=== PATIENT | male | born 1945 | race Caucasian/White ===

== ENCOUNTER 2019-08-15 18:09 | Inpatient (IN) | payer OTHER, MEDICARE ==
[~2019-08-15] VITALS: Ht 182.9 cm; Wt 60.8 kg
[2019-08-15] MEDS ORDERED: ALBUTEROL/IPRATROPIUM 2.5MG/0.5MG, 3 ML NPPB ONE (18:30)
[2019-08-15] MEDS ORDERED: ACETAMINOPHEN 325 MG TABLET PO ONE (18:30)
[2019-08-15] MEDS ORDERED: SODIUM CHLORIDE FLUSH 10ML SYR IVF ONE (18:30)
[2019-08-15] MEDS ORDERED: ALBUTEROL/IPRATROPIUM 2.5MG/0.5MG, 3 ML ONE (18:56)
[2019-08-15] MEDS ORDERED: SODIUM CHLORIDE 0.9% 1,000ML IVBOLUS ONE ×3 (19:00→23:00)
[2019-08-15] MEDS ORDERED: CEFTRIAXONE PMX 1GM/50ML 50 ML IV ONE (19:00)
[2019-08-15 19:05] LABS: INTERNATIONAL NORMALIZED RATIO 1.05 (0.93-1.1); PROTHROMBIN TIME 11.1 Seconds (9.6-11.5)
[2019-08-15 19:05] LABS: RAPID INFLUENZA A Negative (Negative); RAPID INFLUENZA B Negative (Negative)
[2019-08-15 19:07] LABS: ALANINE AMINOTRANSFERASE 29 U/L (12-78); ALBUMIN 3.3 g/dL (3.4-5.0); ANION GAP 5 mmol/L (5-15); CHLORIDE 104 mmol/L (98-107); CREATININE 1.22 mg/dL (0.7-1.3); MEAN CORPUSCULAR HEMOGLOBIN 31.6 pg (27.5-34.5); MEAN CORPUSCULAR VOLUME 95.7 fL (81-97); MEAN PLATELET VOLUME 6.9 fL (7.4-10.4); PLATELET COUNT 180 x10^3/uL (130-400); RED BLOOD COUNT 4.91 x10^6/uL (4.38-5.82)
[2019-08-15] MEDS ORDERED: CEFTRIAXONE PMX 1GM/50ML 50 ML ONE (19:07)
[2019-08-15] MEDS ORDERED: ACETAMINOPHEN 325 MG TABLET ONE (19:07)
[2019-08-15 19:10] LABS: ALKALINE PHOSPHATASE 105 U/L (45-117); TOTAL PROTEIN 7.2 g/dL (6.4-8.2)
--- NOTE | 2019-08-15 19:10 | NUR ---
TYLENOL GIVEN PER EMAR. NS BOLUS STARTED. IV SITE PATENT.
[2019-08-15 19:27] LABS: MD YES
[2019-08-15 19:29] LABS: <PLATELET ESTIMATE> ADEQUATE; <PLT MORPHOLOGY> NORMAL PLT MORPH; <RBC MORPHOLOGY> NORMAL; BAND#(MANUAL) 1.28 x10^3/uL; BANDS%(MANUAL) 9 % (0-7); LYMPH#(MANUAL) 0.28 x10^3/uL (1-3.4); LYMPHS% (MANUAL) 2 % (22-44); MONOS#(MANUAL) 0.85 x10^3/uL (0.3-2.7); MONOS% (MANUAL) 6 % (2-9); SEG#(MANUAL) 11.79 x10^3/uL (1.8-6.8); SEGS% (MANUAL) 83 % (42-75)
--- NOTE | 2019-08-15 19:33 | NUR ---
BLOOD CX BAND ON PT'S WRIST. ROCEPHIN HUNG, INFUSING AT 100ML/HR VIA PUMP. NS BOLUS INFUSING. IV SITE PATENT. PT RESTING QUIETLY ON GURNEY. BROTHER & [id number] IN ROOM.
--- NOTE | 2019-08-15 19:35 | NUR ---
BROTHER: OANH LYSSA ( [birth year]), HOME [phone], CELL [phone].
[2019-08-15] MEDS ORDERED: MELOXICAM (19:41)
[2019-08-15] MEDS ORDERED: STATIN (19:41)
[2019-08-15] MEDS ORDERED: PRILOSEC (19:41)
[2019-08-15] MEDS ORDERED: IRON (19:41)
[2019-08-15] MEDS ORDERED: FLUT1DIS5 IH (19:41)
[2019-08-15] MEDS ORDERED: TRAM50TA2 PO (19:41)
[2019-08-15] MEDS ORDERED: ALBUTEROL INH (19:41)
[2019-08-15] MEDS ORDERED: TIOT18CA INH (19:41)
[2019-08-15] MEDS ORDERED: [UNRECOGNIZED DRUG - REMARK] (19:41)
[2019-08-15] MEDS ORDERED: ASPI-496 PO (19:41)
--- NOTE | 2019-08-15 19:54 | NUR ---
OXI-MASK UNCOMFORTABLE TO PT. CHANGED FOR NASAL CANNULA AT 4L. O2 SAT 89/90%. O2 INCREASED TO 6L.
--- NOTE | 2019-08-15 19:56 | NUR ---
DR KUHN BS FOR EXAM. PT REPORTS FEVER STARTED LAST NOC. REPORTS HX BRONCHIOLECTESIS. PT TO BE ADMITTED.
--- NOTE | 2019-08-15 20:40 | NUR ---
PT DENIES URGE TO VOID, AT THIS TIME. WATER PROVIDED. MONITORING CONTINUING. FAMILY IN ROOM. CALL LIGHT W/IN REACH.
--- NOTE | 2019-08-15 20:50 | NUR ---
2ND LITER NS HUNG, IV SITE PATENT. PT DENIES URGE TO VOID AT THIS TIME.
[2019-08-15] MEDS ORDERED: AZITHROMYCIN 500 MG in SODIUM CHLORIDE 0.9% 250 ML IV ONE (21:00)
--- NOTE | 2019-08-15 21:23 | NUR ---
ZITHROMAX JARETH, INFUSING AT 250ML/HR VIA PUMP. NS BOLUS #2 INFUSING. IV SITE PATENT.
--- NOTE | 2019-08-15 21:50 | NUR ---
NO IMPROVEMENT IN BP SP 2L NS. PT TRANSFERED TO T1 FOR CENTRAL LINE/VASOPRESSORS. THIS RN ASSUMING CARE OF PT. PT SITTING UP IN GURNEY, AWAKE/ALERT. RESPIRATIONS EVEN/UNLABORED, SPEAKING IN FULL SENTENCES W EASE. DENIES SOB/CP/DIZZINESS/WEAKNESS. NO UO SINCE ARRIVAL TO ED. PT REPORTEDLY DROVE TO [place] TODAY TO VISIT BROTHER, DENIES UNILATERAL LEG PAIN/SWELLING. REPORTS PRODUCTIVE COUGH WITH BROWN SPUTUM X YESTERDAY, WORSENING TODAY. SPO2 >90% ON 2.5L BY NC. RR 15, DEEP/EVEN RESPIRATIONS. ROOM PREPARED FOR CENTRAL LINE PLACEMENT. VASOPRESSOR ORDERED FROM PHARMACY. BP/SPO2/ECG MONITORING IN PLACE. NSR ON MONITOR.
--- NOTE | 2019-08-15 21:51 | NUR ---
PT TRANSFERRED TO TR01 PER FIDENCIO. JUANA AVALOS TO ASSUME CARE.
--- NOTE | 2019-08-15 22:27 | NUR ---
THIRD LITER NS HUNG PER ERP. CONSENT SIGNED FOR CENTRAL LINE PLACEMENT. ERP AT BEDSIDE TO PLACE.
[2019-08-15] MEDS ORDERED: NOREPINEPHRINE 8 MG in SODIUM CHLORIDE 0.9% 242 ML IV PRN (22:30)
[2019-08-15] MEDS ORDERED: ONDANSETRON 2MG/ML, 2ML ONE (22:35)
[2019-08-15] MEDS ORDERED: MORPHINE SULFATE 4 MG/ML, 1ML ONE (22:35)
--- NOTE | 2019-08-15 22:57 | NUR ---
CENTRAL LINE PLACEMENT COMPLETE. PT TOLERATED WELL. XRAY CONFIRMATION COMPLETED. AWAITING READ. VASOPRESSOR STARTED IN PIV, OKAY PER ERP. PT WITH STRONG PRODUCTIVE COUGH, PRODUCED DARK GREEN/BROWN SPUTUM. LLL WITH MILD WHEEZE ON EXHILATION. LUNGS OTHERWISE CLEAR. NO EVIDENCE OF PULMONARY EDEMA. FAMILY AT BEDSIDE. AWAITING ADMIT
[2019-08-15] MEDS ORDERED: morphine SULFATE 10 MG/ML, 1ML IVPush ONE (23:00)
[2019-08-15] MEDS ORDERED: ONDANSETRON 2MG/ML, 2ML IVPush ONE (23:00)
--- NOTE | 2019-08-15 23:17 | NUR ---
Negin rn: Central line okayed via ERMD. Norepinephrine switched to central line at this time. Pt maintaining pressures on rate set at this time. BARRIE.
[2019-08-15] MEDS ORDERED: HYDROCORTISONE 100 MG INJ. IVPush SCH (23:30)
[2019-08-16] MEDS ORDERED: NOREPINEPHRINE 8 MG in SODIUM CHLORIDE 0.9% 242 ML IV PRN
[2019-08-16] MEDS ORDERED: morphine SULFATE 10 MG/ML, 1ML IVPush PRN
[2019-08-16] MEDS ORDERED: ONDANSETRON 2MG/ML, 2ML IVPush PRN
[2019-08-16] MEDS ORDERED: CEFTRIAXONE PMX 1GM/50ML 50 ML IV SCH
[2019-08-16] MEDS ORDERED: HYDROCORTISONE 100 MG INJ. ONE (00:20)
[2019-08-16 01:20] VITALS: BP 105/51
[2019-08-16 02:00] VITALS: BP 105/53
[2019-08-16] MEDS: LACTATED RINGERS 1,000 ML IV SCH ×2 (02:06→10:05)
[2019-08-16] MEDS: ENOXAPARIN 40 MG/0.4 ML SQ SCH (02:06)
[2019-08-16] MEDS ORDERED: ALBUTEROL SULFATE 2.5 MG/3 ML NPPB PRN (03:30)
[2019-08-16 04:00] VITALS: BP 116/54
[2019-08-16 04:33] LABS: ANION GAP 5 mmol/L (5-15); CALCIUM 8.2 mg/dL (8.5-10.1); CHLORIDE 112 mmol/L (98-107); CREATININE 0.74 mg/dL (0.7-1.3)
[2019-08-16 04:38] LABS: MEAN CORPUSCULAR HEMOGLOBIN 31.3 pg (27.5-34.5); MEAN CORPUSCULAR HGB CONC 33.4 g/dL (33.2-36.2); MEAN CORPUSCULAR VOLUME 93.9 fL (81-97); MEAN PLATELET VOLUME 6.7 fL (7.4-10.4); PLATELET COUNT 159 x10^3/uL (130-400); RED BLOOD COUNT 4.24 x10^6/uL (4.38-5.82); RED CELL DISTRIBUTION WIDTH 14.7 % (9.4-14.8)
[2019-08-16] MEDS: ACETAMINOPHEN 325 MG TABLET PO PRN ×2 (04:44→10:02)
[2019-08-16] MEDS: PIPERACILLIN/TAZO/PMX 3.375GM 50 ML IV SCH ×4 (04:47→23:30)
[2019-08-16 05:25] LABS: MICROSCOPIC INDICATED
[2019-08-16 05:28] LABS: CULTURE INDICATED? NO
[2019-08-16 05:58] LABS: BASOPHILS # (AUTO) 0.01 x10^3/uL (0-0.1); BASOPHILS % (AUTO) 0 % (0-1); EOSINOPHILS % (AUTO) 0 % (1-7); LYMPHOCYTES # (AUTO) 0.25 x10^3/uL (1-3.4); LYMPHOCYTES % (AUTO) 2 % (22-44); MD SCAN; MONOCYTES # (AUTO) 0.27 x10^3/uL (0.2-0.8); MONOCYTES % (AUTO) 2 % (2-9); NEUTROPHILS # (AUTO) 11.59 x10^3/uL (1.8-6.8); NEUTROPHILS % (AUTO) 96 % (42-75)
[2019-08-16] MEDS ORDERED: ATOR-2 PO (08:06)
[2019-08-16] MEDS ORDERED: METO25TA35 PO (08:06)
[2019-08-16] MEDS ORDERED: GABA-827 PO (08:06)
[2019-08-16] MEDS: SENNA/DOCUSATE TABLET PO SCH (10:02)
[2019-08-16 15:36] VITALS: BP 124/67
[2019-08-16 17:32] VITALS: BP 133/69
[2019-08-16] MEDS: GABAPENTIN 400 MG CAPSULE PO SCH ×2 (17:45→19:58)
[2019-08-16 19:50] VITALS: BP 122/67
[2019-08-16] MEDS: ATORVASTATIN 80 MG TABLET PO SCH (19:58)
[2019-08-16] MEDS: BUDESONIDE 0.5 MG/2 ML INHA NPPB SCH ×2 (21:00→21:45)
[2019-08-16] MEDS: ALBUTEROL/IPRATROPIUM 2.5MG/0.5MG, 3 ML NPPB SCH ×2 (21:00→21:45)
[2019-08-16] MEDS: AZITHROMYCIN 500 MG in SODIUM CHLORIDE 0.9% 250 ML IV SCH (22:23)
[2019-08-17 00:38] VITALS: BP 116/63
[2019-08-17] MEDS: ENOXAPARIN 40 MG/0.4 ML SQ SCH ×2 (01:24→14:34)
[2019-08-17] MEDS: LACTATED RINGERS 1,000 ML IV SCH ×3 (01:24→23:27)
[2019-08-17] MEDS: PIPERACILLIN/TAZO/PMX 3.375GM 50 ML IV SCH ×4 (05:00→23:27)
[2019-08-17 07:48] VITALS: BP 111/58
[2019-08-17] MEDS: GABAPENTIN 400 MG CAPSULE PO SCH ×3 (09:29→22:08)
[2019-08-17] MEDS: ASPIRIN 81 MG TABLET CHEW PO SCH (09:30)
[2019-08-17] MEDS: SENNA/DOCUSATE TABLET PO SCH (09:30)
[2019-08-17] MEDS: METOPROLOL TARTRATE 25 MG TAB PO SCH (09:30)
[2019-08-17 10:24] LABS: CHLORIDE 110 mmol/L (98-107); CREATININE 0.73 mg/dL (0.7-1.3)
[2019-08-17 10:37] LABS: ANION GAP 4 mmol/L (5-15)
[2019-08-17 10:45] LABS: MEAN CORPUSCULAR HEMOGLOBIN 31.4 pg (27.5-34.5); MEAN CORPUSCULAR HGB CONC 33.2 g/dL (33.2-36.2); MEAN CORPUSCULAR VOLUME 94.6 fL (81-97); MEAN PLATELET VOLUME 6.8 fL (7.4-10.4); PLATELET COUNT 131 x10^3/uL (130-400); RED BLOOD COUNT 4.17 x10^6/uL (4.38-5.82); RED CELL DISTRIBUTION WIDTH 14.8 % (9.4-14.8)
[2019-08-17] MEDS ORDERED: POTASSIUM CHLORIDE 20 MEQ in SODIUM CHLORIDE 0.9% 250 ML IV ONE (11:00)
[2019-08-17 11:14] LABS: BASOPHILS # (AUTO) 0.02 x10^3/uL (0-0.1); BASOPHILS % (AUTO) 0 % (0-1); EOSINOPHILS # (AUTO) 0.02 x10^3/uL (0-0.4); EOSINOPHILS % (AUTO) 0 % (1-7); LYMPHOCYTES # (AUTO) 0.36 x10^3/uL (1-3.4); LYMPHOCYTES % (AUTO) 5 % (22-44); MD SCAN; MONOCYTES # (AUTO) 0.45 x10^3/uL (0.2-0.8); MONOCYTES % (AUTO) 6 % (2-9); NEUTROPHILS # (AUTO) 7.07 x10^3/uL (1.8-6.8); NEUTROPHILS % (AUTO) 89 % (42-75)
[2019-08-17 12:36] VITALS: BP 106/62
[2019-08-17] MEDS: BUDESONIDE 0.5 MG/2 ML INHA NPPB SCH ×2 (19:22→19:28)
[2019-08-17] MEDS: ALBUTEROL/IPRATROPIUM 2.5MG/0.5MG, 3 ML NPPB SCH ×2 (19:22→19:28)
[2019-08-17 19:51] VITALS: BP 122/56
[2019-08-17] MEDS: AZITHROMYCIN 500 MG in SODIUM CHLORIDE 0.9% 250 ML IV SCH (22:08)
[2019-08-17] MEDS: ATORVASTATIN 80 MG TABLET PO SCH (22:08)
[2019-08-18 01:45] VITALS: BP 111/65
[2019-08-18 05:38] LABS: ANION GAP 4 mmol/L (5-15); CALCIUM 8.1 mg/dL (8.5-10.1); CHLORIDE 110 mmol/L (98-107)
[2019-08-18 05:39] LABS: CREATININE 0.65 mg/dL (0.7-1.3)
[2019-08-18] MEDS: PIPERACILLIN/TAZO/PMX 3.375GM 50 ML IV SCH ×4 (05:41→23:44)
[2019-08-18 07:50] VITALS: BP 143/68
[2019-08-18] MEDS: ALBUTEROL/IPRATROPIUM 2.5MG/0.5MG, 3 ML NPPB SCH ×3 (08:10→16:15)
[2019-08-18] MEDS ORDERED: PROPOFOL 10 MG/ML, 20ML ONE (08:26)
[2019-08-18] MEDS ORDERED: SUCCINYLCHOLINE 20 MG/ML, 10ML ONE (08:26)
[2019-08-18] MEDS ORDERED: hydrALAzine 20 MG/ML, 1ML IV PRN (09:30)
[2019-08-18] MEDS ORDERED: ALBUTEROL SULFATE 2.5 MG/3 ML NPPB PRN (09:30)
[2019-08-18] MEDS ORDERED: ACETAMINOPHEN 325 MG TABLET PO PRN (09:30)
[2019-08-18] MEDS ORDERED: DIAZEPAM 5 MG/ML, 2ML IVPush PRN (09:30)
[2019-08-18] MEDS ORDERED: HYDROmorphone 2 MG/ML, 1ML IVPush PRN (09:30)
[2019-08-18] MEDS ORDERED: FENTANYL PF 100 MCG/2ML IV PRN (09:30)
[2019-08-18] MEDS ORDERED: PROMETHAZINE 25 MG/ML, 1ML IV PRN (09:30)
[2019-08-18] MEDS ORDERED: OXYcodone 5 MG/5 ML ORAL.SOL UDC PO PRN (09:30)
[2019-08-18] MEDS ORDERED: MEPERIDINE/PF 25MG/0.5ML IVPush PRN (09:30)
[2019-08-18] MEDS ORDERED: KETOROLAC 30 MG/1 ML IV PRN (09:30)
[2019-08-18] MEDS ORDERED: LABETALOL 5MG/ML, 20ML IV PRN (09:30)
[2019-08-18] MEDS: BUDESONIDE 0.5 MG/2 ML INHA NPPB SCH (10:10)
[2019-08-18] MEDS: ASPIRIN 81 MG TABLET CHEW PO SCH (10:25)
[2019-08-18] MEDS: GABAPENTIN 400 MG CAPSULE PO SCH ×3 (10:25→22:07)
[2019-08-18] MEDS: METOPROLOL TARTRATE 25 MG TAB PO SCH (10:25)
[2019-08-18] MEDS: SENNA/DOCUSATE TABLET PO SCH (10:26)
[2019-08-18] MEDS: LACTATED RINGERS 1,000 ML IV SCH ×2 (13:18→23:44)
[2019-08-18 13:24] VITALS: BP 138/76
[2019-08-18 19:26] VITALS: BP 143/68
[2019-08-18] MEDS: AZITHROMYCIN 500 MG in SODIUM CHLORIDE 0.9% 250 ML IV SCH (22:07)
[2019-08-18] MEDS: ATORVASTATIN 80 MG TABLET PO SCH (22:07)
[2019-08-19 01:04] VITALS: BP 134/62
[2019-08-19] MEDS: PIPERACILLIN/TAZO/PMX 3.375GM 50 ML IV SCH ×3 (05:18→17:27)
[2019-08-19] MEDS: ENOXAPARIN 40 MG/0.4 ML SQ SCH (05:18)
[2019-08-19 06:48] VITALS: BP 132/73
[2019-08-19] MEDS: METOPROLOL TARTRATE 25 MG TAB PO SCH (07:54)
[2019-08-19] MEDS: LACTATED RINGERS 1,000 ML IV SCH ×2 (07:54→19:33)
[2019-08-19] MEDS: ASPIRIN 81 MG TABLET CHEW PO SCH (07:55)
[2019-08-19] MEDS: GABAPENTIN 400 MG CAPSULE PO SCH ×3 (07:55→21:56)
[2019-08-19] MEDS: SENNA/DOCUSATE TABLET PO SCH (07:55)
[2019-08-19 13:34] VITALS: BP 149/70
[2019-08-19] MEDS: ACETAMINOPHEN 325 MG TABLET PO PRN (17:27)
[2019-08-19] MEDS ORDERED: AZEL137S4 NAS (18:12)
[2019-08-19 19:38] VITALS: BP 128/69
[2019-08-19] MEDS: AZITHROMYCIN 500 MG in SODIUM CHLORIDE 0.9% 250 ML IV SCH (21:56)
[2019-08-19] MEDS: ATORVASTATIN 80 MG TABLET PO SCH (21:57)
[2019-08-20 02:26] VITALS: BP 126/73
[2019-08-20] MEDS: PIPERACILLIN/TAZO/PMX 3.375GM 50 ML IV SCH ×5 (05:10→22:58)
[2019-08-20] MEDS: LACTATED RINGERS 1,000 ML IV SCH (05:10)
[2019-08-20] MEDS: ENOXAPARIN 40 MG/0.4 ML SQ SCH (05:11)
[2019-08-20 06:07] LABS: ANION GAP 5 mmol/L (5-15); CHLORIDE 105 mmol/L (98-107); CREATININE 0.64 mg/dL (0.7-1.3)
[2019-08-20 06:08] LABS: BASOPHILS # (AUTO) 0.02 x10^3/uL (0-0.1); BASOPHILS % (AUTO) 1 % (0-1); EOSINOPHILS # (AUTO) 0.18 x10^3/uL (0-0.4); EOSINOPHILS % (AUTO) 4 % (1-7); LYMPHOCYTES # (AUTO) 0.69 x10^3/uL (1-3.4); LYMPHOCYTES % (AUTO) 16 % (22-44); MD NO; MEAN CORPUSCULAR HEMOGLOBIN 31.6 pg (27.5-34.5); MEAN CORPUSCULAR HGB CONC 33.8 g/dL (33.2-36.2); MEAN CORPUSCULAR VOLUME 93.3 fL (81-97); MEAN PLATELET VOLUME 6.4 fL (7.4-10.4); MONOCYTES # (AUTO) 0.37 x10^3/uL (0.2-0.8); MONOCYTES % (AUTO) 9 % (2-9); NEUTROPHILS # (AUTO) 2.93 x10^3/uL (1.8-6.8); NEUTROPHILS % (AUTO) 70 % (42-75); PLATELET COUNT 126 x10^3/uL (130-400); RED BLOOD COUNT 4.56 x10^6/uL (4.38-5.82); RED CELL DISTRIBUTION WIDTH 14.5 % (9.4-14.8)
[2019-08-20] MEDS ORDERED: POTASSIUM CHLORIDE 20 MEQ TAB.ER.PRT PO ONE (08:00)
[2019-08-20 08:53] VITALS: BP 135/79
[2019-08-20] MEDS: ASPIRIN 81 MG TABLET CHEW PO SCH (09:21)
[2019-08-20] MEDS: GABAPENTIN 400 MG CAPSULE PO SCH ×3 (09:23→19:41)
[2019-08-20] MEDS: SENNA/DOCUSATE TABLET PO SCH (09:25)
[2019-08-20] MEDS: METOPROLOL TARTRATE 25 MG TAB PO SCH (09:25)
[2019-08-20] MEDS: ACETAMINOPHEN 325 MG TABLET PO PRN ×2 (09:34→16:28)
[2019-08-20 14:04] VITALS: BP 133/72
[2019-08-20 19:38] VITALS: BP 113/67
[2019-08-20] MEDS: ATORVASTATIN 80 MG TABLET PO SCH (19:41)
[2019-08-21] MEDS ORDERED: LACTATED RINGERS 1,000 ML IV SCH
[2019-08-21 02:44] VITALS: BP 123/78
[2019-08-21] MEDS: ENOXAPARIN 40 MG/0.4 ML SQ SCH (04:39)
[2019-08-21] MEDS: PIPERACILLIN/TAZO/PMX 3.375GM 50 ML IV SCH ×4 (04:39→22:30)
[2019-08-21 07:07] LABS: ANION GAP 3 mmol/L (5-15); CALCIUM 8.1 mg/dL (8.5-10.1); CHLORIDE 108 mmol/L (98-107); CREATININE 0.66 mg/dL (0.7-1.3)
[2019-08-21] MEDS ORDERED: POTASSIUM CHLORIDE 20 MEQ TAB.ER.PRT PO ONE (08:00)
[2019-08-21] MEDS: SENNA/DOCUSATE TABLET PO SCH (08:03)
[2019-08-21] MEDS: GABAPENTIN 400 MG CAPSULE PO SCH ×3 (08:10→19:11)
[2019-08-21] MEDS: ASPIRIN 81 MG TABLET CHEW PO SCH (08:10)
[2019-08-21 08:11] VITALS: BP 118/72
[2019-08-21 14:03] VITALS: BP 126/75
[2019-08-21 19:07] VITALS: BP 118/75
[2019-08-21] MEDS: ATORVASTATIN 80 MG TABLET PO SCH (19:12)
[2019-08-21] MEDS: ACETAMINOPHEN 325 MG TABLET PO PRN (19:27)
[2019-08-21] MEDS: LACTATED RINGERS 1,000 ML IV SCH (23:12)
[2019-08-22 02:17] VITALS: BP 129/70
[2019-08-22] MEDS: ENOXAPARIN 40 MG/0.4 ML SQ SCH (04:31)
[2019-08-22] MEDS: PIPERACILLIN/TAZO/PMX 3.375GM 50 ML IV SCH ×4 (04:31→22:44)
[2019-08-22 06:01] LABS: ANION GAP 3 mmol/L (5-15); CALCIUM 8.3 mg/dL (8.5-10.1); CHLORIDE 107 mmol/L (98-107)
[2019-08-22] MEDS ORDERED: POTASSIUM CHLORIDE 20 MEQ TAB.ER.PRT PO ONE ×2 (07:30→08:30)
[2019-08-22] MEDS ORDERED: POTASSIUM CHLORIDE 10% 40 MEQ/30 ML UDC PO ONE (08:00)
[2019-08-22] MEDS: ASPIRIN 81 MG TABLET CHEW PO SCH (08:57)
[2019-08-22] MEDS: GABAPENTIN 400 MG CAPSULE PO SCH ×3 (08:57→21:28)
[2019-08-22] MEDS: SENNA/DOCUSATE TABLET PO SCH (09:00)
[2019-08-22 09:02] VITALS: BP 112/70
[2019-08-22 12:28] VITALS: BP 103/64
[2019-08-22] MEDS ORDERED: SENN-193 PO (13:45)
[2019-08-22] MEDS: LACTATED RINGERS 1,000 ML IV SCH (14:00)
[2019-08-22 19:28] VITALS: BP 117/65
[2019-08-22] MEDS: ATORVASTATIN 80 MG TABLET PO SCH (21:28)
[2019-08-23 00:49] VITALS: BP 110/62
[2019-08-23] MEDS: LACTATED RINGERS 1,000 ML IV SCH (03:42)
[2019-08-23] MEDS: PIPERACILLIN/TAZO/PMX 3.375GM 50 ML IV SCH (05:06)
[2019-08-23] MEDS: ENOXAPARIN 40 MG/0.4 ML SQ SCH (05:06)
[2019-08-23 06:41] VITALS: BP 123/67
[2019-08-23] MEDS: SENNA/DOCUSATE TABLET PO SCH (08:16)
[2019-08-23] MEDS: ASPIRIN 81 MG TABLET CHEW PO SCH (08:23)
[2019-08-23] MEDS: GABAPENTIN 400 MG CAPSULE PO SCH (08:23)
== END 2019-08-23 11:52 | DRG 871 ==
LOC: ED 23:59 → EDIP 08-16 00:17 → CCU 08-16 00:33 → 4WST 08-16 15:10
PROVIDERS: ADMIT Family Medicine; ATTEND Internal Medicine
PROC: 02HV33Z Insertion of Infusion Device into Superior Vena Cava, Percutaneous Approach (ICD-10-PCS; principal; 2019-08-16)
PROC: B548ZZA Ultrasonography of Superior Vena Cava, Guidance (ICD-10-PCS; 2019-08-16)
PROC: 0DH63UZ Insertion of Feeding Device into Stomach, Percutaneous Approach (ICD-10-PCS; 2019-08-18)
DX: A41.9 Sepsis, unspecified organism (principal); E43 Unspecified severe protein-calorie malnutrition; J69.0 Pneumonitis due to inhalation of food and vomit; J96.01 Acute respiratory failure with hypoxia; N17.0 Acute kidney failure with tubular necrosis; R65.21 Severe sepsis with septic shock; Z68.1 Body mass index [BMI] 19.9 or less, adult; D64.9 Anemia, unspecified; D69.6 Thrombocytopenia, unspecified; E78.5 Hyperlipidemia, unspecified; E83.51 Hypocalcemia; E87.6 Hypokalemia; I49.3 Ventricular premature depolarization; I69.321 Dysphasia following cerebral infarction; J44.9 Chronic obstructive pulmonary disease, unspecified; K20.0 Eosinophilic esophagitis; K44.9 Diaphragmatic hernia without obstruction or gangrene; K59.09 Other constipation; N40.0 Benign prostatic hyperplasia without lower urinary tract symptoms; R13.12 Dysphagia, oropharyngeal phase; Z66 Do not resuscitate; Z82.49 Family history of ischemic heart disease and other diseases of the circulatory system; Z79.82 Long term (current) use of aspirin
CPT/HCPCS: 36415; 36556; 74230; 84145; 87400; 96361; 96365; 96367; 96375; 99291; J7620; J7626; 71045; 80048; 80053; 81001; 82330; 83605; 83735; 84100; 85025; 85610; 85730; 86480; 87015; 87040; 87070; 87077; 87081; 87107; 87116; 87186; 87205; 87206; 93005; 94640; B4087; G0378; J0456; J0696; J1650; J2405; J2543; J2704; J3480; J0330; J1720; J2270; J7030; J7050; J7120